=== PATIENT | female | born 1955 | race Caucasian/White ===

== ENCOUNTER → 2017-12-09 10:54 | Outpatient (CLI) | payer OTHER, SELFPAY ==
[2017-12-09 11:01] LABS: RBC Urine None Seen (0-5/HPF)
[2017-12-09 11:17] LABS: Appearance Urine UA CLEAR; Bilirubin Urine UA NEGATIVE (NEGATIVE); Color Urine UA YELLOW; Glucose Urine UA NEGATIVE (Normal); Ketones Urine UA NEGATIVE (NEGATIVE); Leukocyte Esterase Urine UA 1+ (NEGATIVE); Nitrite Urine UA Negative (Negative); Occult Blood Urine UA TRACE-LYSED (Negative); Protein Urine UA TRACE (Negative); Specific Gravity Urine UA 1.025 (1.000-1.035); Urobilinogen Urine UA 0.2 E.U./dL (0.2); pH Urine UA 5.5 (4.5-8.0)
[2017-12-09 11:31] LABS: Add Manual Diff / Slide Review NO; Basophils Percent Auto 0.6 % (0-2); Eosinophils Percent Auto 0.6 % (2-4); Hematocrit 46.8 % (36-46); Hemoglobin 15.9 g/dL (12.0-16.0); Mean Corpuscular Hemoglobin 29.2 PG (26-34); Mean Corpuscular Volume 85.8 fL (80-100); Monocytes Percent Auto 7.3 % (3-14); Neutrophils Absolute Auto 8300 /uL (3000-5900); Neutrophils Percent Auto 78.5 % (50-75); Platelet Count 303 X10^3/uL (150-400); Red Blood Cell Count 5.46 X10^6/uL (4.0-5.2); Red Cell Distribution Width 13.4 % (11.6-14.8); WBC Urine 5-10/HPF (0-5/HPF); White Blood Cell Count 10.6 X10^3/uL (4.5-11.0)
[2017-12-09 11:32] LABS: Amorphous Sediment Urine 2+; Bacteria Urine Moderate (10-30); Culture Indicated Urine Cult Not Indicated; Squamous Epithelial Cell Urine 5-10 /HPF
[2017-12-09 11:41] LABS: Alanine Aminotransferase 32 IU/L (9-52); Albumin 4.6 g/dL (3.5-5.0); Albumin Globulin Ratio 1.3 (1.0-2.8); Alkaline Phosphatase 77 U/L (38-126); Amylase 64 U/L (30-110); Aspartate Aminotransferase 25 IU/L (14-36); BUN Creatinine Ratio 18.6 (6-22); Blood Urea Nitrogen 13 mg/dL (7-17); Calcium 9.1 mg/dL (8.4-10.2); Carbon Dioxide 26 mmol/L (22-32); Chloride 103 mmol/L (98-107); Cholesterol 204 mg/dL (140-199); Estimated Glomerular Filt Rate > 60.0 mL/min (>60); Globulin 3.6 g/dL (1.7-4.1); Glucose 149 mg/dL (80-110); HDL Cholesterol 39 mg/dL (40-60); LDL Cholesterol Calculated 144 mg/dL (<100); Lipase 36 U/L (23-300); Potassium 4.1 mmol/L (3.4-5.1); Sodium 141 mmol/L (137-145); Total Protein 8.2 g/dL (6.3-8.2); Triglycerides 107 mg/dL (35-150)
[2017-12-09 12:04] LABS: HEMOLYSIS 69 (0-50)
[2017-12-09 12:17] LABS: Erythrocyte Sedimentation Rate 7 MM/HR (0-20)
== END ==
PROVIDERS: PCP Family Medicine; Visit Provider Specialist
DX: R11.10 Vomiting, unspecified (principal); M79.1 Myalgia
CPT/HCPCS: 36415; 80053; 80061; 81001; 82150; 83690; 85025; 85651

== ENCOUNTER → 2023-09-10 13:48 | Outpatient (CLI) | payer OTHER, SELFPAY ==
[2023-09-10 14:45] LABS: COVID-19 CEPHEID 4-PLEX PCR Negative (Negative); Influenza A - CEPHEID Flu A NEGATIVE (NEGATIVE); Influenza B - CEPHEID Flu B NEGATIVE (NEGATIVE); Respiratory Syncytial Virus Negative (Negative)
== END ==
PROVIDERS: Visit Provider Nurse Practitioner Family
DX: J02.9 Acute pharyngitis, unspecified (principal)
CPT/HCPCS: 0241U; 87070

== ENCOUNTER → 2024-07-22 10:26 | Outpatient (CLI) | payer OTHER, SELFPAY ==
[2024-07-22 11:11] LABS: Add Manual Diff / Slide Review NO; Basophils Absolute Auto 100 /uL (0-100); Basophils Percent Auto 0.7 % (0-2); Eosinophils Absolute Auto 200 /uL (0-450); Eosinophils Percent Auto 2.2 % (2-4); Hemoglobin 14.4 g/dL (12.0-16.0); Lymphocytes Absolute Auto 1400 /uL (1100-4500); Lymphocytes Percent Auto 19.3 % (25-40); Mean Corpuscular HGB Conc 33.6 % (30-36); Mean Corpuscular Hemoglobin 29.2 PG (26-34); Monocytes Absolute Auto 500 /uL (0-900); Monocytes Percent Auto 6.9 % (3-14); Neutrophils Absolute Auto 5200 /uL (1500-7000); Neutrophils Percent Auto 70.9 % (50-75); Platelet Count 259 X10^3/uL (150-400); Red Blood Cell Count 4.94 X10^6/uL (4.0-5.2); Red Cell Distribution Width 12.9 % (11.6-14.8); White Blood Cell Count 7.3 X10^3/uL (4.5-11.0)
[2024-07-22 11:18] LABS: Hemoglobin A1C% w Est Avg Glu 5.4 % (4.0-6.0)
[2024-07-22 11:36] LABS: HEMOLYSIS < 15 (0-50); Iron 59 ug/dL (37-170)
[2024-07-22 11:38] LABS: Alanine Aminotransferase 13 IU/L (<35); Albumin 4.2 g/dL (3.5-5.0); Albumin Globulin Ratio 1.4 (1.0-2.8); Alkaline Phosphatase 89 U/L (38-126); Aspartate Aminotransferase 20 IU/L (14-36); BUN Creatinine Ratio 16.7 (6-22); Bilirubin Total 0.6 mg/dL (0.2-1.3); Blood Urea Nitrogen 12 mg/dL (7-17); Calcium 9.4 mg/dL (8.4-10.2); Carbon Dioxide 26 mmol/L (22-32); Chloride 106 mmol/L (98-107); Estimated Glomerular Filt Rate > 60 mL/min (>60); Globulin 2.9 g/dL (1.7-4.1); Glucose 96 mg/dL (80-110); HEMOLYSIS 17 (0-50); Potassium 4.2 mmol/L (3.4-5.1); Sodium 138 mmol/L (137-145); Total Protein 7.1 g/dL (6.3-8.2)
[2024-07-22 11:47] LABS: Percent Iron Saturation 22 % (15-50); Total Iron Binding Capacity 271 ug/dL (265-497); Transferrin 240 mg/dL (206-381)
[2024-07-22 11:56] LABS: Vitamin D 25 Hydroxy (D3) 14.8 ng/mL (30.0-100.0)
[2024-07-22 12:08] LABS: Thyroid Stimulating Hormone 3.94 uIU/mL (0.47-4.68)
[2024-07-22 12:13] LABS: Ferritin 70 ng/mL (11-264)
[2024-07-22 12:43] LABS: Folate 14.4 ng/mL (2.76-20.0); Vitamin B12 279 pg/mL (239-931)
[2024-07-24 01:07] LABS: Calcium 9.1 mg/dL (8.7-10.3); Parathyroid Hormone, Intact 108 pg/mL (15-65)
== END ==
PROVIDERS: PCP Student in an Organized Health Care Education/Training Program; Referring Provider Student in an Organized Health Care Education/Training Program; Visit Provider Student in an Organized Health Care Education/Training Program
DX: R20.0 Anesthesia of skin (principal); R20.2 Paresthesia of skin; E66.01 Morbid (severe) obesity due to excess calories; E66.9 Obesity, unspecified; E03.8 Other specified hypothyroidism; R79.89 Other specified abnormal findings of blood chemistry
CPT/HCPCS: 36415; 80053; 82306; 82310; 82607; 82728; 82746; 83036; 83540; 83550; 83970; 84443; 85025

== ENCOUNTER → 2024-07-30 08:37 | Outpatient (CLI) | payer OTHER, SELFPAY ==
[2024-07-31 12:49] LABS: Influenza A - CEPHEID Flu A POSITIVE (NEGATIVE); Influenza B - CEPHEID Flu B NEGATIVE (NEGATIVE); Respiratory Syncytial Virus Negative (Negative)
[2024-07-31 12:50] LABS: COVID-19 CEPHEID 4-PLEX PCR Negative (Negative)
== END ==
PROVIDERS: PCP Student in an Organized Health Care Education/Training Program; Visit Provider Student in an Organized Health Care Education/Training Program
DX: R05.1 Acute cough (principal)
CPT/HCPCS: 0241U

== ENCOUNTER → 2024-07-30 09:00 | Outpatient (CLI) | payer OTHER, SELFPAY ==
--- NOTE | 2024-07-30 09:02 | DI.RAD.S_ITS ---
PROCEDURE: XR CHEST 2V INDICATIONS: cough/congestion CP with breathing/coughing TECHNIQUE: 2 views of the chest were acquired. COMPARISON: None. FINDINGS: Surgical changes and devices: None. Lungs and pleura: Lungs are clear. Greater than 3 cm lung mass in the right lower lobe. No pleural effusions or pneumothorax. Mediastinum: Mediastinal contours are normal. Heart size is normal. Bones and chest wall: No suspicious bony abnormalities. Soft tissues appear unremarkable. IMPRESSION: 1. No acute infiltrates. 2. Greater than 3 cm lung mass in the right lower lobe. Comment: Recommend chest CT. Comment: Findings were discussed with Amber Reyes on 07/30/2024 at 1008 hours Dictated by: Serafin Webster M.D. on 07/30/2024 at 10:01 Approved by: Serafin Webster M.D. on 07/30/2024 at 10:09
== END ==
LOC: RAD 09:01
PROVIDERS: PCP Student in an Organized Health Care Education/Training Program; Referring Provider Student in an Organized Health Care Education/Training Program; Visit Provider Student in an Organized Health Care Education/Training Program
DX: R91.8 Other nonspecific abnormal finding of lung field (principal); R05.1 Acute cough; R52 Pain, unspecified; R05.8 Other specified cough; R68.89 Other general symptoms and signs
CPT/HCPCS: 0241U; 71046

== ENCOUNTER → 2024-08-02 11:39 | Outpatient (CLI) | payer OTHER, SELFPAY ==
[2024-08-05 17:40] LABS: Tissue Transglutaminase IgA 2 U/mL (0-3); Tissue Transglutaminase IgG 7 U/mL (0-5)
== END ==
LOC: LAB 11:40
PROVIDERS: PCP Student in an Organized Health Care Education/Training Program; Referring Provider Student in an Organized Health Care Education/Training Program; Visit Provider Student in an Organized Health Care Education/Training Program
DX: E21.3 Hyperparathyroidism, unspecified (principal); E55.9 Vitamin D deficiency, unspecified
CPT/HCPCS: 36415; 82340; 83516

== ENCOUNTER → 2024-10-26 08:39 | Outpatient (CLI) | payer OTHER, SELFPAY ==
[2024-10-26 10:18] LABS: Cholesterol 159 mg/dL (140-199); HDL Cholesterol 40 mg/dL (40-60); LDL Cholesterol Calculated 103 mg/dL (<100); Triglycerides 82 mg/dL (35-150)
[2024-10-26 10:34] LABS: Vitamin D 25 Hydroxy (D3) 48.1 ng/mL (30.0-100.0)
== END ==
PROVIDERS: PCP Student in an Organized Health Care Education/Training Program; Referring Provider Student in an Organized Health Care Education/Training Program; Visit Provider Student in an Organized Health Care Education/Training Program
DX: E55.9 Vitamin D deficiency, unspecified (principal); E78.5 Hyperlipidemia, unspecified
CPT/HCPCS: 36415; 80061; 82306

== ENCOUNTER 2025-01-15 12:15 | Outpatient (RCR) | payer MEDICARE, SELFPAY ==
--- NOTE | 2024-12-20 15:45 | PT.OIE ---
Current Diagnoses Pain in left lower leg (12/20/24) Weakness (12/20/24) Past Medical History (Last Reviewed 07/30/24 @ 09:27 by Amber Reyes PA-C) Excessive daytime sleepiness Hyperlipidemia Morbid obesity with body mass index (BMI) of 40.0 to 49.9 Nocturnal hypoxemia Obstructive sleep apnea Other and unspecified hyperlipidemia Post traumatic stress disorder (PTSD) (03/28/12) Varicose veins of leg with swelling Past Surgical History (Last Reviewed 07/30/24 @ 09:27 by Amber Reyes PA-C) [place] teeth removed (11/10/84) Visit Care Team Role Provider Type Valeria Strickland MD Attending Provider Physician Family Provider Primary Care Provider Referring Provider Specialty: Family Practice Obstetrics Address: [address] [place] [address] Email: [email or web address] Physical Therapy Initial Evaluation PT-OP-A Visit Information Start: 12/20/24 15:20 Freq: Status: Active Protocol: Document 12/20/24 14:35 DCW (Rec: 12/20/24 15:32 DCW [id number]) Out-Patient Physical Therapy Visit Information Visit Information Visit Type Initial Evaluation Visit Start Time 14:35 Visit Stop Time 15:15 Visit Number 1 Number of HEMATOLOGY TECHNOLOGIST Visits 0 Evaluation Information Evaluation Date 12/20/24 PT-OP-B Current Condition Start: 12/20/24 15:20 Freq: Status: Active Protocol: Document 12/20/24 14:35 DCW (Rec: 12/20/24 15:32 DCW [id number]) Current Condition History of Current Condition Onset Date One month history Current Complaints Pain in left proximal calf History of Current Pt is a 69 year old female presenting with a one month Condition history of proximal calf pain. Pt reports that she had a worse episode of pain in the same location 15 years ago, reports she was walking down a hill, felt something tear and roll up like a window shade in her left leg, later had severe bruising dripping down her calf. Has vague memories of being told she tore something, but does not remember any specifics. Current pain is in a similar location, but much less severe now. 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 Reports she has actually been feeling much better the past two days. Also notes concerns regarding stocking numbness bilaterally. PT-OP-C Subjective Start: 12/20/24 15:20 Freq: Status: Active Protocol: Document 12/20/24 14:35 DCW (Rec: 12/20/24 15:32 DCW [id number]) OP-PT Subjective Patient Comments Patient Comments Of course now that I got in here, I'm feeling pretty good. Patient Reported Improving Progress Patient Questionnaires Lower Extremity Functional Scale LEFS Score 53/80 = 66.25% PT-OP-F Manual Assessment Start: 12/20/24 15:20 Freq: Status: Active Protocol: Document 12/20/24 14:35 DCW (Rec: 12/20/24 15:35 DCW [id number]) Manual Assessments Soft Tissue Assessment Soft Tissue Mobility Appears to be small mass of soft tissue at posterior Assessment left knee PT-OP-M Strength Start: 12/20/24 15:20 Freq: Status: Active Protocol: Document 12/20/24 14:35 DCW (Rec: 12/20/24 15:35 DCW [id number]) Ankle/Foot Strength Ankle and Foot Manual Muscle Testing Right Dorsiflexion (L4) 3+ Fair+ Comments Pt performs single leg heel raise x3 before stopping due to ankle pain Left Plantarflexion (S1) 3- Fair- Comments Pt unable to perform single leg heel raise due to left PF weakness PT-OP-Q Treatments Start: 12/20/24 15:20 Freq: Status: Active Protocol: Document 12/20/24 14:35 DCW (Rec: 12/20/24 15:45 DCW [id number]) Therapeutic Exercises Sitting Exercises 4-way ankle flexion Sitting Exercise 4-way ankle flexion Name Side bilateral Resistance Lv 4 PT-OP-T Assessment and Plan Start: 12/20/24 15:20 Freq: Status: Active Protocol: Document 12/20/24 14:35 DCW (Rec: 12/20/24 15:45 DCW [id number]) Physical Therapy Assessment Rehab Potential Rehabilitation Good Potential Evaluation Complexity Number of Personal 3 or More Factors/ Comorbidities Number of Body 3 Systems Impaired Clinical Stable Presentation at Evaluation Impairments Impairments Activity Tolerance,Pain,Strength Goals Two Impairment Calf weakness (L: 3-/5, R:3+/5) Halfway Goal (LTG) Pt to demonstrate ability to perform single leg heel raises at least x10 repetitions on both feet in order to demonstrate improved strength of ankle plantarflexion One Impairment Pt does not have an appropriate home exercise program Short Term Goal (STG Pt to be independent and compliant with an appropriate ) HEP STG Duration 01/20/25 Assessment Summary Assessment Pt presents with signs and symptoms consistent with potential strain of prior injury. 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 With location of pain and feeling of small soft tissue mass in posterior knee, pt may have prior history of a plantaris tear, with a DDx of potential waldrop's cyst. At the time of her evaluation, pt is feeling much better, has remained at a higher level of activity, and is feeling more confident in her abilities. Pt was provided with a T-band and instructions of performing 4 -way ankle flexion of her HEP. Plan to have pt follow- up in a few weeks to assess progress. If pt continues to do well, will likely discharge at that time. If pt is having increased pain or difficulty, will reassess and update HEP. Physical Therapy Plan Frequency and Duration Frequency of Every Other Week Treatment Plan of Care Start 12/20/24 Date Plan of Care End 02/20/25 Date Therapeutic Interventions Therapeutic Gait Training,Home Exercise Program,Joint Mobilizations Interventions ,Manual Therapy,Neuromuscular Re-education,Patient/ Caregiver Education,Self-Care/Home Management,Soft Tissue Mobilization,Therapeutic Activities,Therapeutic Exercises Next Visit Focus/Plan Next Note Type Treatment Note Next Visit Plan HEP/ankle strengthening, STM, flexibility
--- NOTE | 2025-01-15 12:39 | PT.OPDS ---
Current Diagnoses Pain in left lower leg (01/15/25) Weakness (01/15/25) Visit Care Team Role Provider Type Valeria Strickland MD Attending Provider Physician Family Provider Primary Care Provider Referring Provider Specialty: Family Practice Obstetrics Address: [address] [place] [address], [id number] Email: [email or web address] Visit Number Visit Number 2 Discharge Summary PT-OP-A Visit Information Start: 12/20/24 15:20 Freq: Status: Active Protocol: Document 01/15/25 12:16 DCW (Rec: 01/15/25 12:39 DCW [id number]) Out-Patient Physical Therapy Visit Information Visit Information Visit Type Discharge Summary Visit Start Time 12:16 Visit Stop Time 12:33 Visit Number 2 Number of PEARL DIGGER Visits 0 PT-OP-B Current Condition Start: 12/20/24 15:20 Freq: Status: Active Protocol: Document 12/20/24 14:35 DCW (Rec: 12/20/24 15:32 DCW [id number]) Current Condition History of Current Condition Onset Date One month history Current Complaints Pain in left proximal calf History of Current Pt is a 69 year old female presenting with a one month Condition history of proximal calf pain. Pt reports that she had a worse episode of pain in the same location 15 years ago, reports she was walking down a hill, felt something tear and roll up like a window shade in her left leg, later had severe bruising dripping down her calf. Has vague memories of being told she tore something, but does not remember any specifics. Current pain is in a similar location, but much less severe now. 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 Reports she has actually been feeling much better the past two days. Also notes concerns regarding stocking numbness bilaterally. PT-OP-C Subjective Start: 12/20/24 15:20 Freq: Status: Active Protocol: Document 01/15/25 12:16 DCW (Rec: 01/15/25 12:39 DCW [id number]) OP-PT Subjective Patient Comments Patient Comments Feeling better-andrea PT-OP-F Manual Assessment Start: 12/20/24 15:20 Freq: Status: Active Protocol: Document 12/20/24 14:35 DCW (Rec: 12/20/24 15:35 DCW [id number]) Manual Assessments Soft Tissue Assessment Soft Tissue Mobility Appears to be small mass of soft tissue at posterior Assessment left knee PT-OP-M Strength Start: 12/20/24 15:20 Freq: Status: Active Protocol: Document 12/20/24 14:35 DCW (Rec: 12/20/24 15:35 DCW [id number]) Ankle/Foot Strength Ankle and Foot Manual Muscle Testing Right Dorsiflexion (L4) 3+ Fair+ Comments Pt performs single leg heel raise x3 before stopping due to ankle pain Left Plantarflexion (S1) 3- Fair- Comments Pt unable to perform single leg heel raise due to left PF weakness PT-OP-T Assessment and Plan Start: 12/20/24 15:20 Freq: Status: Active Protocol: Document 01/15/25 12:16 DCW (Rec: 01/15/25 12:39 DCW [id number]) Physical Therapy Assessment Impairments Impairments Activity Tolerance,Pain,Strength Goals Two Impairment Calf weakness (L: 3-/5, R:3+/5) Chain Builder Goal (LTG) Pt to demonstrate ability to perform single leg heel raises at least x10 repetitions on both feet in order to demonstrate improved strength of ankle plantarflexion One Impairment Pt does not have an appropriate home exercise program Short Term Goal (STG Pt to be independent and compliant with an appropriate ) HEP STG Duration 01/20/25 Assessment Summary Assessment Pt reports pain is improving, not really experiencing and limiting pain or concerns any more. Did bring up fear of tenderness on medial L calf could be a blood clot, but notes she has been sore there for five years , so probably not. Visual inspection shows no red flags for DVT, tenderness very superficial, and pt equally tender on same spot on right side. Pt feels comfortable with HEP, current level of function. Trying to be more active, has signed up for a few exercise classes. Appropriate for discharge at this time. Physical Therapy Plan Frequency and Duration Frequency of Every Other Week Treatment Plan of Care Start 12/20/24 Date Plan of Care End 02/20/25 Date Therapeutic Interventions Therapeutic Gait Training,Home Exercise Program,Joint Mobilizations Interventions ,Manual Therapy,Neuromuscular Re-education,Patient/ Caregiver Education,Self-Care/Home Management,Soft Tissue Mobilization,Therapeutic Activities,Therapeutic Exercises Discharge Physical Therapy Discharge Comments Independent HEP Next Visit Focus/Plan Next Note Type Discharge Summary
== END 2025-01-20 11:09 | disposition home or self-care (01) ==
LOC: PHYS 12:15
PROVIDERS: Family Provider Student in an Organized Health Care Education/Training Program; PCP Student in an Organized Health Care Education/Training Program; Referring Provider Student in an Organized Health Care Education/Training Program; Visit Provider Student in an Organized Health Care Education/Training Program
DX: M79.662 Pain in left lower leg (principal); R53.1 Weakness
CPT/HCPCS: 97140; 97161

== ENCOUNTER → 2025-03-06 08:33 | Outpatient (CLI) | payer MEDICARE, SELFPAY ==
[2025-03-06 09:46] LABS: Add Manual Diff / Slide Review NO; Hematocrit 41.9 % (36-46); Hemoglobin 14.4 g/dL (12.0-16.0); Lymphocytes Absolute Auto 1300 /uL (1100-4500); Mean Corpuscular HGB Conc 34.2 % (30-36); Mean Corpuscular Hemoglobin 29.8 PG (26-34); Mean Corpuscular Volume 87.1 fL (80-100); Platelet Count 268 X10^3/uL (150-400)
[2025-03-06 09:57] LABS: Hemoglobin A1C% w Est Avg Glu 5.5 % (4.0-6.0)
[2025-03-06 11:11] LABS: Alanine Aminotransferase 12 IU/L (<35); Albumin 4.1 g/dL (3.5-5.0); Albumin Globulin Ratio 1.4 (1.0-2.8); Alkaline Phosphatase 85 U/L (38-126); Blood Urea Nitrogen 13 mg/dL (7-17); Calcium 9.3 mg/dL (8.4-10.2); Carbon Dioxide 30 mmol/L (22-32); Chloride 104 mmol/L (98-107); Cholesterol 182 mg/dL (140-199); Estimated Glomerular Filt Rate > 60 mL/min (>60); Globulin 3.0 g/dL (1.7-4.1); Glucose 86 mg/dL (70-99); HDL Cholesterol 46 mg/dL (40-60); HEMOLYSIS < 15 (0-50); Potassium 5.1 mmol/L (3.4-5.1); Sodium 141 mmol/L (137-145); Total Protein 7.1 g/dL (6.3-8.2); Triglycerides 88 mg/dL (35-150)
[2025-03-06 11:29] LABS: Vitamin D 25 Hydroxy (D3) 18.4 ng/mL (30.0-100.0)
[2025-03-06 11:39] LABS: Thyroid Stimulating Hormone 7.25 uIU/mL (0.47-4.68)
[2025-03-06 12:15] LABS: Folate 18.1 ng/mL (2.76-20.0); Vitamin B12 389 pg/mL (239-931)
== END ==
PROVIDERS: PCP Student in an Organized Health Care Education/Training Program; Referring Provider Student in an Organized Health Care Education/Training Program; Visit Provider Student in an Organized Health Care Education/Training Program
DX: R63.5 Abnormal weight gain (principal); E55.9 Vitamin D deficiency, unspecified; Z13.220 Encounter for screening for lipoid disorders
CPT/HCPCS: 36415; 80053; 80061; 82306; 82607; 82746; 83036; 84443; 85025